=== PATIENT | female | born 1950 | race Caucasian/White ===

== ENCOUNTER 2017-02-11 05:04 | Inpatient (IN) ==
[2017-02-11] MEDS ORDERED: IPRATROPIUM/ALBUTEROL 3 ML AMPUL.NEB NEB ONE ×2 (05:11→05:40)
[2017-02-11] MEDS ORDERED: methylPREDNISolone SOD SUCC 125 MG/2 ML VIAL IV ONE (05:11)
--- NOTE | 2017-02-11 05:22 | Emergency Department Note ---
Asthma HPI - General Chief Complaint: Asthma Stated Complaint: asthma short of breathe Time Seen by Provider: 02/11/17 05:10 Source: patient Mode of arrival: ambulatory - History of Present Illness HPI Narrative: 66-year-old female with a history of COPD , has had wheezing for the past 3 days , but increased tonight. sHe initially arrived with O2 sats of 88% but after the first DuoNeb treatment has been up in the mid 90s. pt has had some cough with no sputum production, she is afebrile. Denies any chest pain. It has been using her inhaler. patient a heavy tobacco user and continues to smoke. has an appointment in two days with her pcp. she only has a mdi albuterol puffer. - Related Data Home Medications Medication Instructions Recorded Confirmed albuterol sulfate HFA 90 2 puff INHALATION Q6H g 03/18/16 12/18/16 mcg/actuation aerosol inhaler multivit with 1 tab PO QDAY tab 03/18/16 12/18/16 qlqqakhw-hepe-JV-lutein 8 mg iron-400 mcg-300 mcg tablet omeprazole magnesium 20 mg 20 mg PO BID 09/29/16 12/18/16 capsule,delayed release Previous Rx's Medication Instructions Recorded amlodipine 10 mg tablet 10 mg PO QDAY 90 Days 03/17/16 benazepril 20 mg tablet 20 mg PO BID 90 Days 03/17/16 valacyclovir 1 gram tablet 1,000 mg PO ONCE #20 tab 11/11/16 Azithromycin [Zithromax] 250 mg PO #6 tablet 02/11/17 predniSONE [Prednisone] 10 mg PO [facility] #30 tablet 02/11/17 Allergies Allergy/AdvReac Type Severity Reaction Status Date / Time No Known Drug Allergies Allergy Unknown Unknown Verified 12/18/16 11:13 Review of Systems All systems ED: reviewed and negative except as stated. Constitutional: Denies: fever, chills Eyes: Denies: eye pain ENT ED: Denies: ear pain Cardiovascular: Denies: chest pain, palpitations Respiratory: Reports: as per HPI, wheezes Asthma PMH - Past Medical History Medical history: Reports: COPD, GERD, hypertension, osteoporosis, other ( previous pneumothorax.meningitis. Massive adrenal gland.) Family history: Reports: no significant family history - Social History smoking status: Heavy tobacco smoker Alcohol use: Reports: Rarely Drug use: Reports: none Physical Exam - General Limitations: no limitations General appearance: alert - Head Head exam: atraumatic - Eye Eye exam: Present: normal appearance, PERRL - ENT ENT exam: normal exam, normal oropharynx - Neck Neck exam: Present: normal inspection, full ROM. Absent: trachea midline - Chest Chest inspection: Present: normal inspection - Respiratory Respiratory exam: Present: wheezes. Absent: respiratory distress, stridor - Cardiovascular Cardiovascular exam: Present: regular rate, normal rhythm - Abdominal Exam Abdominal exam: Present: soft. Absent: distention, tenderness - Extremities Exam Extremities exam: Present: normal inspection, full ROM - Back Exam Back exam: Present: full ROM - Neurological Exam Neurological exam: Present: alert, oriented X3 - Psychiatric Psychiatric exam: Present: normal affect, normal mood Course Vital Signs Temperature 100.9 F H 02/11/17 05:05 Pulse Rate 111 H 02/11/17 05:05 Respiratory Rate 24 02/11/17 05:05 Blood Pressure 155/88 02/11/17 05:05 Pulse Oximetry (%) 88 L 02/11/17 05:05 Temperature 99.6 F 02/11/17 06:01 Pulse Rate 81 02/11/17 08:41 Respiratory Rate 20 02/11/17 06:01 Blood Pressure 105/65 02/11/17 08:41 Pulse Oximetry (%) 93 02/11/17 08:41 Asthma - MDM Narrative Medical decision making narrative: patient given 2 duonebs and solumedrol, intial temp was 100.9.temporally but was retaken orally and temp was 99.6. after second duoneb sats are are 94 %. but decreased to 87 % again. o2 was started. Radiologist suspects pneumonia in rll and lll. lactic is 1.0 and wbc is 11,000 with 66 segs and 10 bandsdr Rahtod called and patient to be admited - Lab Data Result diagrams: 02/11/17 06:10 02/11/17 06:10 Lab Results 02/11/17 02/11/17 02/11/17 Range/Units 06:10 06:10 06:20 WBC 11.5 H (4.5-11.0) K/mcL RBC 4.66 (4.00-5.20) M/mcL Hgb 14.1 (12.0-15.0) g/dL Hct 43.6 (36.0-48.0) % MCV 93.6 (80.0-100.0) fL MCH 30.3 (26.0-34.0) pg MCHC 32.4 (31.0-36.0) g/dL RDW 13.9 (11.5-14.5) % Plt Count 153 (140-440) K/mcL MPV 10.1 (7.4-10.4) fL Total Counted 200 Seg Neutrophils % 66 (38-78) % Band Neutrophils % 10 (0-10) % Lymphocytes % 15 (15-49) % Monocytes % (Manual) 7 (1-12) % Reactive Lymphocytes 2 (0-2) % Platelet Estimate Normal (NORMAL) RBC Morphology Normal (NORMAL) VBG Lactic Acid 1.0 (0.5-2.2) mmol/L Sodium 140 (133-145) mmol/L Potassium 3.9 (3.3-5.1) mmol/L Chloride 99 (96-108) mmol/L Carbon Dioxide 27 (22-30) mmol/L Anion Gap 14.0 (8-16) BUN 8 (8-23) mg/dl Creatinine 0.7 (0.6-1.1) mg/dl GFR Calculation 90 Glucose 100 (70-105) mg/dL Calcium 9.3 (8.6-10.4) mg/dl Total Bilirubin 0.6 (0.0-1.0) mg/dL AST 15 (0-37) U/l ALT 13 (0-40) U/l Alkaline Phosphatase 83 (39-117) U/L NT-Pro-B Natriuret Pep 151.2 H (0-125) pg/ml Total Protein 6.7 (5.9-8.4) gm/dL Albumin 4.0 (3.2-5.2) gm/dL Globulin 2.7 (2.2-3.7) gm/dL Albumin/Globulin Ratio 1.5 (1.0-2.3) Disposition Clinical Impression: COPD exacerbation, Pneumonia Clinical Impression: (Ruled Out): Bronchitis Disposition: Xfer As Inpt ([facility]) Condition: Fair Instructions: Chronic Obstructive Pulmonary Disease (ED), Chronic Bronchitis ( ED) Prescriptions: Azithromycin [Zithromax] 250 mg PO UD #6 tablet predniSONE [Prednisone] 10 mg PO [facility] #30 tablet Referrals: Mary Reddy DO [Primary Care Provider] - Time of Disposition: 06:07
[2017-02-11] MEDS ORDERED: cefTRIAXone 1 GM in DEXTROSE 5% IN WATER 50 ML IV ONE (06:12)
[2017-02-11] MEDS ORDERED: AZITHROMYCIN 500 MG in DEXTROSE 5% IN WATER 250 ML IV ONE (06:13)
[2017-02-11 07:07] LABS: Mean Cell Volume 93.6 fL (80.0-100.0); Mean Corpuscular HGB Conc 32.4 g/dL (31.0-36.0); Mean Corpuscular Hemoglobin 30.3 pg (26.0-34.0); Platelet Count 153 K/mcL (140-440); RBC 4.66 M/mcL (4.00-5.20); Red Cell Distribution Width 13.9 % (11.5-14.5)
[2017-02-11 07:29] LABS: ALT/SGPT 13 U/l (0-40); Albumin/Globulin Ratio 1.5 (1.0-2.3); Alkaline Phosphatase 83 U/L (39-117); Blood Urea Nitrogen 8 mg/dl (8-23); proBNP 151.2 pg/ml (0-125)
[2017-02-11 07:39] LABS: Band Neutrophils % 10 % (0-10); Lymphocytes % 15 % (15-49); Monocytes % (Manual) 7 % (1-12); Platelet Estimate NORMAL (NORMAL); RBC Morphology NORMAL (NORMAL); Segmented Neutrophils % 66 % (38-78)
--- NOTE | 2017-02-11 08:05 | XRay Report ---
CLINICAL INFORMATION: Wheezing. History of centrilobular emphysema and chronic right middle lobe atelectasis COMPARISON: Chest CT from 04/25/2016 plain films in 12/12/2016.. FINDINGS: Heart size, mediastinum and pulmonary vessels are normal. Complete right middle lobe atelectasis is a long time chronic finding. Vague airspace disease has developed in the right lower lobes suspicious for a new infiltrate. No definite pleural effusions IMPRESSION: Probable new back right lower lobe infiltrate. Suggest short-term two view chest x-ray for reevaluation Complete chronic atelectasis of the right middle lobe - as previously seen Centrilobular emphysema Interpreted and Authenticated by: Wally Bearden 02/11/17
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
[2017-02-11] MEDS ORDERED: ONDANSETRON 4 MG/2 ML VIAL IV PRN (10:30)
[2017-02-11] MEDS ORDERED: NALOXONE HCL 0.4 MG/ML VIAL IV PRN (10:30)
[2017-02-11] MEDS ORDERED: MAGNESIUM HYDROXIDE 30 ML ORAL.SUSP PO PRN (10:30)
[2017-02-11] MEDS ORDERED: FLEETS ADULT ENEMA PR PRN (10:30)
[2017-02-11] MEDS ORDERED: ACETAMINOPHEN 325 MG TABLET PO PRN (10:30)
[2017-02-11] MEDS ORDERED: oxyCODONE HCL 5 MG TABLET PO PRN (10:30)
[2017-02-11] MEDS: 0.9 % SODIUM CHLORIDE 10 ML SYRINGE IV SCH ×2 (14:09→21:36)
[2017-02-11] MEDS: methylPREDNISolone SOD SUCC 125 MG/2 ML VIAL IV SCH ×2 (14:09→21:35)
[2017-02-11] MEDS: IPRATROPIUM/ALBUTEROL 3 ML AMPUL.NEB NEB SCH ×4 (15:51→22:24)
[2017-02-11] MEDS: HEPARIN 5,000 UNIT/ML VIAL SQ SCH (21:34)
[2017-02-12] MEDS: IPRATROPIUM/ALBUTEROL 3 ML AMPUL.NEB NEB SCH ×3 (04:21→11:21)
[2017-02-12] MEDS: methylPREDNISolone SOD SUCC 125 MG/2 ML VIAL IV SCH (06:58)
[2017-02-12] MEDS: 0.9 % SODIUM CHLORIDE 10 ML SYRINGE IV SCH (06:58)
[2017-02-12 07:05] LABS: Basophils # (Auto) 0 K/mcL (0.0-0.3); Basophils % (Auto) 0.1 % (0.0-2.0); Eosinophils # (Auto) 0 K/mcL (0.0-0.7); Eosinophils % (Auto) 0 % (0.0-7.0); Granulocytes % (Auto) 90.9 % (38.0-78.0); Lymphocytes # (Auto) 0.7 K/mcL (1.5-4.8); Lymphocytes % (Auto) 5.9 % (15.5-49.0); Mean Cell Volume 93.5 fL (80.0-100.0); Mean Corpuscular HGB Conc 32.5 g/dL (31.0-36.0); Mean Corpuscular Hemoglobin 30.4 pg (26.0-34.0); Monocytes # (Auto) 0.4 K/mcL (0.1-0.9); Monocytes % (Auto) 3.1 % (1.0-12.0); Platelet Count 149 K/mcL (140-440); RBC 4.19 M/mcL (4.00-5.20); Red Cell Distribution Width 13.8 % (11.5-14.5)
[2017-02-12 07:47] LABS: ALT/SGPT 15 U/l (0-40); Albumin 3.7 gm/dL (3.2-5.2); Albumin/Globulin Ratio 1.3 (1.0-2.3); Alkaline Phosphatase 91 U/L (39-117); Bilirubin,Direct < 0.2 mg/dL (0.0-0.3); Blood Urea Nitrogen 10 mg/dl (8-23); Gamma Glutamyl Transpeptidase 12 U/L (5-36); Uric Acid 3.9 mg/dL (2.5-8.0)
[2017-02-12] MEDS ORDERED: AZITHROMYCIN 250 MG TABLET PO SCH (09:00)
[2017-02-12] MEDS ORDERED: amLODIPine 10 MG TABLET PO SCH (09:00)
[2017-02-12] MEDS ORDERED: cefTRIAXone 1 GM in DEXTROSE 5% IN WATER 50 ML IV SCH (09:00)
[2017-02-12] MEDS ORDERED: OMEPRAZOLE MAGNESIUM 20 MG PO SCH (09:00)
[2017-02-12] MEDS ORDERED: LISINOPRIL 20 MG TABLET PO SCH ×2 (09:00→10:00)
[2017-02-12] MEDS ORDERED: MULTIVIT,THER IRON,CA,FA & MIN 1 TABLET PO SCH (09:00)
[2017-02-12] MEDS: HEPARIN 5,000 UNIT/ML VIAL SQ SCH (09:13)
--- NOTE | 2017-02-12 10:10 | Discharge Summary ---
Medical - DS: Prov Patient information: Note initiated : 02/12/17 at 10:05 am Service Date, if different from initiated Date: [] Patient: Yumiko Marsh 66 y/o F admitted on 02/11/17 for Astham/SOB. Chief Complaint: [] Date of admission: 02/11/17 10:31 Discharge date: 02/12/17 Primary care physician: [f_Reg Prim Care Provider] Admitting clinician: Lisa Mcgrath Discharging clinician: Lisa Mcgrath Medical - DS: Meds - Discharge Medications Prescriptions: Cefdinir 300 mg PO BID #10 capsule Ipratropium/Albuterol Sulfate [Combivent] 2 puff INH QID #1 inhaler predniSONE [Prednisone] 10 mg PO ONCE #20 tablet Active and Home Medications: Home Medications amlodipine 10 mg tablet 10 mg PO QDAY 90 Days 03/17/16 [Rx Confirmed 02/11/17 Last Taken Unknown] benazepril 20 mg tablet 20 mg PO BID 90 Days 03/17/16 [Rx Confirmed 02/11/17 Last Taken Unknown] albuterol sulfate HFA 90 mcg/actuation aerosol inhaler 2 puff INHALATION Q6H g 03/18/16 [History Confirmed 02/11/17 Last Taken 02/10/17] multivit with aegqtujg-pgoy-YC-lutein 8 mg iron-400 mcg-300 mcg tablet 1 tab PO QDAY tab 03/18/16 [History Confirmed 02/11/17 Last Taken Unknown] omeprazole magnesium 20 mg capsule,delayed release 20 mg PO BID 09/29/16 [ History Confirmed 02/11/17 Last Taken Unknown] Benazepril [Lotensin] 20 mg PO BID 02/11/17 [History Confirmed 02/12/17 Last Taken 02/10/17 07:30] Medical - DS: Hosp Hospital course: Mr. Marsh is a 66 year old female who presented to the hospital with complaints of shorteness of breath, cough, X ray was suggestive of pna, and she was admitted to the hospital with community acquired pneumonia and codp exacerbation. Community acquired pneumonia: Patient doing much better, able to tolerate po well, wbc count back to normal, she will be discharged home on azithromycin and cefdinir Copd exacerbation : On presentation she was hypoxic, treated with iv steroids, duonebs, she responded to treatment very well, and turned a cornder sooner than expected. She is on 92-93% on RA which is her baseline. She will be discharged home on po prednisone 40mg qd x 4 days and a combivent inhaler the rest of the patients stay in the hospital was uneventful, no changes in her home meds done Smoking cessation reinforced again. Discharge diagnosis: pneumonia, copd exacerbation - Time Spent with Patient Total time spent providing and/or coordinating discharge services: Less than 30 minutes Medical - DS: Exam - Constitutional Vitals: Vital Signs Temp Pulse Pulse Pulse Resp BP BP 02/12/17 07:44 02/12/17 07:41 88 16 02/12/17 07:23 78 16 02/12/17 06:36 97.5 F L 78 72 16 120/62 02/12/17 03:42 98.3 F 74 24 102/63 02/11/17 23:52 98.2 F 80 24 110/68 02/11/17 22:26 70 22 02/11/17 22:25 70 22 02/11/17 20:00 98.1 F 96 H 24 126/58 02/11/17 18:57 83 18 02/11/17 18:56 79 18 02/11/17 15:52 79 18 02/11/17 15:32 97.8 F 18 109/62 02/11/17 10:33 96.7 F L 86 24 113/67 Pulse Ox 02/12/17 07:44 92 02/12/17 07:41 02/12/17 07:23 90 02/12/17 06:36 90 02/12/17 03:42 92 02/11/17 23:52 94 02/11/17 22:26 96 02/11/17 22:25 02/11/17 20:00 91 02/11/17 18:57 93 02/11/17 18:56 02/11/17 15:52 02/11/17 15:32 93 02/11/17 10:33 90 Intake and Output 02/11/17 02/12/17 02/12/17 21:59 05:59 13:59 Intake Total 1760 / 1760 100 / 100 Balance 1760 / 1760 100 / 100 Intake: Oral 1760 / 1760 100 / 100 Other: Meal Dinner Breakfast Percent of Meal Consumed 100% 100% Feeding Ability Independent # Voids 1 1 Weight 158 lb Additional comments: Constitutional; Afebrile, cooperative, alert, not in distress. Eyes- No icterus, , No periorbital swelling Ears- Ext ear normal, hearing normal to conversation. Neck- Midline trachea, supple Respiratory system: Air Entry equal on both sides, No crackles or wheezing, no rhonchi. CVS- Rate rhythm regular, S1,S2 heard, no gallop, no rub. Abdomen- Soft nontender abdomen, no organomegaly, no tenderness, no guarding or rigidity, ASSOCIATE RELATIONS SPECIALIST- AOOx3, moving all extremities, no gross focal deficit noted. Medical - DS: Data Labs on day of discharge: Labs from last 24 hours 02/12/17 02/12/17 04:55 04:55 WBC 12.4 H RBC 4.19 Hgb 12.8 Hct 39.2 MCV 93.5 MCH 30.4 MCHC 32.5 RDW 13.8 Plt Count 149 MPV 10.0 Gran % 90.9 H Lymph % (Auto) 5.9 L [place] % (Auto) 3.1 Eos % (Auto) 0 Baso % (Auto) 0.1 Gran # 11.2 H Lymph # 0.7 L [place] # 0.4 Eos # 0 Baso # 0 Sodium 141 Potassium 4.0 Chloride 100 Carbon Dioxide 23 Anion Gap 18.0 H BUN 10 Creatinine 0.6 GFR Calculation 95 Glucose 170 H Uric Acid 3.9 Calcium 9.8 Phosphorus 3.1 Magnesium 2.0 Total Bilirubin 0.2 Direct Bilirubin < 0.2 GGT 12 AST 14 ALT 15 Alkaline Phosphatase 91 Lactate Dehydrogenase 206 Total Protein 6.5 Albumin 3.7 Globulin 2.8 Albumin/Globulin Ratio 1.3 Triglycerides 65 Medical - DS: A/P - Patient/Caregiver Discharge Instructions Activity: increase activity as tolerated Diet: Regular Diet, Low Sodium (2gm) Additional Instructions: Follow up with PCP in 7-10 days Take azithromycin 250mg once daily x 4 days. Take prednisone (10mg tab) 40mg (4 tabs) once daily for 5 days Take cefdinir 300mg twice daily for 5 days. Go to the ER if worsening shortness of breath, fever or any new concerns. - Follow up Plan Follow up with: Mary Reddy DO [Primary Care Provider] - Disposition: Home, Self-Care Prognosis: Fair Rehab Potential: Fair I certify that the patient requires SNF services: No Overall status at discharge: patient is progressing back to baseline Medical - DS: Qual - VTE Deep Vein Thrombosis/Pulmonary Embolism Present on Admission: No
[2017-02-12] MEDS ORDERED: PANTOPRAZOLE 40 MG TABLET PO SCH (17:00)
== END 2017-02-12 11:55 | disposition home or self-care (01) | DRG 190 ==
LOC: ED 05:04 → MEDSUR 10:30
PROVIDERS: ADMIT Internal Medicine; ATTEND Internal Medicine

== ENCOUNTER 2023-04-02 22:21 | Inpatient (IN) ==
[2023-04-02] MEDS ORDERED: IPRATROPIUM/ALBUTEROL 3 ML AMPUL.NEB NEB ONE ×2 (22:32→23:20)
[2023-04-02] MEDS ORDERED: 0.9 % SODIUM CHLORIDE 1,000 ML IV ONE (22:34)
--- NOTE | 2023-04-02 22:34 | Emergency Department Note ---
HPI General Chief complaint: Shortness of Breath/Dyspnea Stated complaint: SOB Time Seen by Provider: 04/02/23 22:32 Mode of arrival: ambulatory History of Present Illness HPI Narrative: Narrative: Patient is a 72-year-old female with a past medical history significant for COPD and hypertension who presents to the emergency department due to shortness of breath. Patient states that she began to have shortness of breath earlier today, but that it has become much more significant at this time. She states this worsens with activity, but denies any other palliative or provocative factors. She endorses worsening cough as well. She states that she has had so me runny nose and sore throat. She denies any other symptoms at this time. Related Data Home Medications Medication Instructions Recorded Confirmed omeprazole magnesium 20 mg 20 mg PO BID 09/29/16 04/03/23 capsule,delayed release mirtazapine 7.5 mg tablet 7.5 mg PO QHS 03/24/23 04/03/23 Previous Rx's Medication Instructions Recorded amlodipine 5 mg tablet 5 mg PO QDAY #90 tabs 03/24/23 benazepril 20 mg tablet (Lotensin) 20 mg PO BID blood pressure #180 03/24/23 tabs tiotropium 2.5 mcg-olodaterol 2.5 See Rx Instructions .Route 03/24/23 mcg/actuation mist for inhalation .COMPLEX #4 grams (Stiolto Respimat) Allergies Allergy/AdvReac Type Severity Reaction Status Date / Time No Known Drug Allergies Allergy Unknown Unknown Verified 04/02/23 22:30 Review of Systems ROS ROS Narrative: Narrative: Constitutional: Denies fever or weakness Eyes: Denies eye discharge or vision change ENT ED: Reports throat pain and rhinorrhea Cardiovascular: Denies chest pain, dyspnea on exertion, orthopnea or edema Respiratory: Reports shortness of breath and cough Gastrointestinal: Denies abdominal pain, nausea, vomiting, diarrhea, constipation, hematochezia or melena Musculoskeletal: Denies back pain or myalgia Integumentary: Denies rash or lesions Neurological: Denies headache or weakness [facility] Narrative Patient History Narrative: Narrative: Medical/Surgical/Family History All Active Problems (Updated 04/03/23 @ 05:52 by Isak Mckenzie MD) COPD exacerbation (Acute) Acid reflux (Chronic) Epigastric abdominal pain (Chronic) Constipation (Chronic) Recurrent cold sores (Chronic) Abdominal pain (Chronic) Chest pain (Chronic) COPD (chronic obstructive pulmonary disease) (Chronic) Lung nodule seen on imaging study (Chronic) Atelectasis of right lung (Chronic) Hx of laparoscopic gastric banding (Chronic) Tobacco abuse (Chronic) Peripheral neuropathy (Chronic) Osteopenia (Chronic) Hypertension, essential, benign (Chronic) Hemorrhoids, internal (Chronic) Esophagitis, reflux (Chronic) Emphysema lung (Chronic) 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 Emphysema lung Epigastric abdominal pain Esophagitis 05/04/2013 - See EGD report, Dr. Larson Esophagitis, reflux Gastritis, acute 01/18/2015 Hemorrhoids, internal 01/18/2015 - Prolapsed Herpes zoster Hypertension, essential, benign Hypocalcemia 12/15/2012 Hypoxia Left anterior knee pain either DJD vs meniscal tear. GEt X Ray today, NSAIDS x 2 weeks. If no resp onse reassess. 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 CT neg, adenoma, Meningitis Osteopenia Peripheral neuropathy 07/31/2014 Pleural effusion 12/15/2012 Pneumonia Pneumonia Pyelonephritis Recurrent cold sores Seborrheic dermatitis Seizure disorder 01/10/2013 Shakiness Sinusitis, acute Solitary lung nodule Tobacco abuse Visual disturbance 10/31/2014 Surgical History (Updated 12/18/22 @ 15:54 by Anna Becerra) History of esophagogastroduodenoscopy 05/04/2013 History of hemorrhoidectomy (~2017) Seen by Dr Patel, s/p banding procedure, on high fiber diet, doing well. History of surgery (~2012) Gallbladder Hx of laparoscopic gastric banding hemorrhoids Family History (Updated 12/18/22 @ 15:55 by Anna Becerra) Unknown Disorder of gallbladder Sister Cancer Brother Diabetes Mother High blood pressure Social History Smoking Status: Current every day smoker Alcohol Intake Frequency: does not drink Substance Use: does not use Exam Narrative Narrative: Narrative: General General appearance: Present alert and in no apparent distress; Absent anxious, appears intoxicated or sleepy Head Head: Present atraumatic and normocephalic Eye Eye: Present PERRL, EOMI and visual chaudhari intact; Absent scleral icterus or nystagmus ENT ENT: Present mucous membranes moist; Absent nasal congestion Neck Neck: Present full ROM and trachea midline Chest Chest: Present normal inspection and symmetric chest wall rise Respiratory Respiratory: Present decreased breath sounds; Absent normal lung sounds bilaterally, respiratory distress, rales/crackles, wheezes, stridor or accessory muscle use Cardiovascular Cardiovascular: Present regular rate, normal rhythm and normal heart sounds Adbominal Abdominal: Absent distention Extremities Extremities: Present normal inspection and full ROM; Absent pedal edema or pretibial edema Back Back: Present normal inspection and full ROM Neurological Neurological: Present alert and oriented X3 Psychiatric Psychiatric: Present normal affect and normal mood Skin Skin: Present warm (WNL), dry and normal color Course Vital Signs Vital signs: Vital Signs Temperature 99.2 F H 04/02/23 22:22 Pulse Rate 118 H 04/02/23 22:22 Respiratory Rate 36 H 04/02/23 22:22 Blood Pressure 188/93 04/02/23 22:22 Pulse Oximetry (%) 96 04/02/23 22:22 Oxygen Delivery Method Nasal Cannula 04/02/23 22:22 Oxygen Flow Rate (L/min) 4 04/02/23 22:22 Temperature 98.4 F 04/03/23 03:40 Pulse Rate 92 H 04/03/23 03:40 Respiratory Rate 24 H 04/03/23 03:40 Blood Pressure 124/59 04/03/23 03:40 Pulse Oximetry (%) 92 04/03/23 03:40 Oxygen Delivery Method Nasal Cannula 04/03/23 03:40 Oxygen Flow Rate (L/min) 4 04/03/23 03:40 [facility] MDM Narrative Medical decision making narrative: Narrative: Patient is a 72-year-old female who presents to the emergency department due to shortness of breath. Differential diagnosis include ACS, pneumonia, COVID, influenza, other viral infection, and COPD exacerbation. Patient's labs are reassuring overall. X-ray does demonstrate groundglass opacities at the bases. Patient received a DuoNeb with improvement in symptoms. She also was not working as hard to breathe at this time. Patient received another DuoNeb breathing treatment with further improvement, but continues to have decreased breath sounds throughout the lungs. Patient was then given a prolonged breathing treatment. At that time she expressed further improvement in breathing, but continued to require 4 L of oxygen via nasal cannula, and does not require oxygen at baseline. For this reason we did speak to Dr. Monsivais and he did agree with admission at this time. Lab Data 04/02/23 22:40 Labs: Lab Results 04/02/23 04/02/23 04/02/23 Range/Units 22:36 22:36 22:39 WBC (4.5-11.0) K/mcL RBC (3.59-5.38) M/mcL Hgb (11.2-15.7) g/dL Hct (34.1-44.9) % POC Hct 46.0 (36-48) MCV (80.0-100.0) fL MCH (26.0-34.0) pg MCHC (31.0-36.0) g/dL RDW (11.5-14.5) % Plt Count (140-440) K/mcL MPV (8.8-12.5) fL Immature Gran % (Auto) (0.0-0.5) % Neut % (Auto) (38.0-78.0) % Lymph % (Auto) (15.5-49.0) % [place] % (Auto) (1.0-12.0) % Eos % (Auto) (0.0-7.0) % Baso % (Auto) (0.0-2.0) % Lymph # (Auto) (1.50-4.80) K/mcL [place] # (Auto) (0.10-0.90) K/mcL Eos # (Auto) (0.00-0.70) K/mcL Baso # (Auto) (0.00-0.30) K/mcL Immature Gran # (0.00-0.05) K/mcl Absolute Neutrophils (1.80-8.00) K/mcL POC VBG pH 7.37 (7.32-7.42) POC VBG pCO2 at Temp 47.0 (41-51) POC VBG pO2 47 H (25-40) POC VBG HCO3 27.1 (24-28) POC VBG Total CO2 29.0 (25-29) POC Venous O2 Sat 81.0 H (40-70) POC VBG Base Excess 2.0 (-2-2) VBG Lactic Acid 1.8 (0.5-2) POC Sodium 139 (133-145) POC Potassium 3.8 (3.3-5.1) POC Chloride 100 (96-108) POC Total CO2 25.0 (22-30) POC Anion Gap 19.0 H (8.0-16.0) POC BUN 11 (6-20) POC Creatinine 0.7 (0.6-1.2) POC Glucose 163 H (70-105) POC WB Ioniz Calcium 1.18 (1.16-1.32) NT-Pro-B Natriuret Pep 271.3 H (<125.0) pg/mL 04/02/23 Range/Units 22:40 WBC 6.9 (4.5-11.0) K/mcL RBC 4.76 (3.59-5.38) M/mcL Hgb 14.3 (11.2-15.7) g/dL Hct 43.8 (34.1-44.9) % POC Hct (36-48) MCV 92.0 (80.0-100.0) fL MCH 30.0 (26.0-34.0) pg MCHC 32.6 (31.0-36.0) g/dL RDW 13.7 (11.5-14.5) % Plt Count 175 (140-440) K/mcL MPV 11.4 (8.8-12.5) fL Immature Gran % (Auto) 0.3 (0.0-0.5) % Neut % (Auto) 80.9 H (38.0-78.0) % Lymph % (Auto) 14.4 L (15.5-49.0) % [place] % (Auto) 3.8 (1.0-12.0) % Eos % (Auto) 0.6 (0.0-7.0) % Baso % (Auto) 0 (0.0-2.0) % Lymph # (Auto) 1.00 L (1.50-4.80) K/mcL [place] # (Auto) 0.26 (0.10-0.90) K/mcL Eos # (Auto) 0.04 (0.00-0.70) K/mcL Baso # (Auto) 0 (0.00-0.30) K/mcL Immature Gran # 0.02 (0.00-0.05) K/mcl Absolute Neutrophils 5.61 (1.80-8.00) K/mcL POC VBG pH (7.32-7.42) POC VBG pCO2 at Temp (41-51) POC VBG pO2 (25-40) POC VBG HCO3 (24-28) POC VBG Total CO2 (25-29) POC Venous O2 Sat (40-70) POC VBG Base Excess (-2-2) VBG Lactic Acid (0.5-2) POC Sodium (133-145) POC Potassium (3.3-5.1) POC Chloride (96-108) POC Total CO2 (22-30) POC Anion Gap (8.0-16.0) POC BUN (6-20) POC Creatinine (0.6-1.2) POC Glucose (70-105) POC WB Ioniz Calcium (1.16-1.32) NT-Pro-B Natriuret Pep (<125.0) pg/mL Discharge Plan Patient/Caregiver Discharge Instructions Pt seen by FLEET SALESPERSON/PA only: No Clinical Impression: COPD exacerbation Patient Disposition: Xfer As Inpt ([facility]) Discharge Date/Time: 04/03/23 03:32
[2023-04-02 22:40] LABS: POC Calcium, Ionized 1.18 (1.16-1.32); POC Creatinine 0.7 (0.6-1.2); POC Potassium 3.8 (3.3-5.1)
[2023-04-02 23:47] LABS: Basophils # (Auto) 0 K/mcL (0.00-0.30); Basophils % (Auto) 0 % (0.0-2.0); Eosinophils # (Auto) 0.04 K/mcL (0.00-0.70); Eosinophils % (Auto) 0.6 % (0.0-7.0); Hematocrit 43.8 % (34.1-44.9); Hemoglobin 14.3 g/dL (11.2-15.7); Lymphocytes % (Auto) 14.4 % (15.5-49.0); Mean Corpuscular HGB Conc 32.6 g/dL (31.0-36.0); Mean Platelet Volume 11.4 fL (8.8-12.5); Monocytes # (Auto) 0.26 K/mcL (0.10-0.90); Monocytes % (Auto) 3.8 % (1.0-12.0); Neutrophils % (Auto) 80.9 % (38.0-78.0); Platelet Count 175 K/mcL (140-440); RBC 4.76 M/mcL (3.59-5.38); Red Cell Distribution Width 13.7 % (11.5-14.5); WBC 6.9 K/mcL (4.5-11.0)
[2023-04-02] MEDS ORDERED: predniSONE 20 MG TABLET PO ONE (23:47)
[2023-04-02 23:56] LABS: proBNP 271.3 pg/mL (<125.0)
[2023-04-03] MEDS ORDERED: ALBUTEROL SULFATE 2.5 MG/3 ML NEBULIZER NEB ONE (00:11)
[2023-04-03] MEDS ORDERED: IPRATROPIUM 2.5 ML AMPUL.NEB NEB ONE (00:11)
[2023-04-03] MEDS ORDERED: ONDANSETRON 4 MG/2 ML VIAL IV PRN (01:54)
[2023-04-03] MEDS ORDERED: ACETAMINOPHEN 325 MG TABLET PO PRN (01:54)
[2023-04-03] MEDS: LACTATED RINGERS 1,000 ML IV SCH ×3 (04:15→23:33)
--- NOTE | 2023-04-03 07:11 | Internal Med History&Physical ---
HPI History of Present Illness Patient information: Note initiated : 04/03/23 at 7:07 am Service Date, if different from initiated Date: [] Patient: Yumiko Marsh 72 y/o F admitted on 04/03/23 for Shortness of breath. Chief Complaint: [] History of present illness: Ms. Marsh is a 72 year old female with a past medical history significant for COPD not on oxygen, current smoker, history of allergies hypertension, GERD presented with worsening shortness of breath, increased cough and sputum production. Patient has been a smoker since the age of 15 and currently smokes 1/2 a pack a day. Patient reports she has seasonal allergies and takes [id number] antiallergy medication, she couple of days ago she was working in her property, mowing the lawn and she feels this exacerbated her symptoms. Her cough worsened, she is bringing up bluish mucus and short of breath. She does endorse some runny nose and sore throat, she feels cold but no fevers. On presentation patient was requiring 3-4 L nasal cannula oxygen to keep her sats in low 90s. She was tachycardic with heart rate 102, blood pressure was stable. Patient's labs are reassuring, WBC 6.9, hemoglobin 14.3. VBG pH 7.36, PCO2 47, PO2 47, bicarb 27. Electrolytes, renal functions stable. BNP 271. COVID test was negative in ER. Chest x-ray shows interstitial inflammation in both lower lobes superimposed on underlying emphysema. Patient received DuoNebs with improvement in symptoms however continues to require supplemental oxygen and have decreased breath sounds throughout the lungs. Review of system Constitutional: Denies fever or weakness Eyes: Denies eye discharge or vision change ENT ED: Reports throat pain and rhinorrhea Cardiovascular: Denies chest pain, dyspnea on exertion, orthopnea or edema Respiratory: Reports shortness of breath and cough Gastrointestinal: Denies abdominal pain, nausea, vomiting, diarrhea, constipation, hematochezia or melena Musculoskeletal: Denies back pain or myalgia Integumentary: Denies rash or lesions Neurological: Denies headache or weakness Physical examination General General appearance: Present alert and in no apparent distress; Absent anxious, appears intoxicated or sleepy Head Head: Present atraumatic and normocephalic Eye Eye: Present PERRL, EOMI and visual chaudhari intact; Absent scleral icterus or nystagmus ENT ENT: Present mucous membranes moist; Absent nasal congestion Neck Neck: Present full ROM and trachea midline Chest Chest: Present normal inspection and symmetric chest wall rise Respiratory Respiratory: Present decreased breath sounds; on 4 L nasal cannula oxygen satting mid 90s, absent normal lung sounds bilaterally, respiratory distress, rales/crackles, wheezes, stridor or accessory muscle use Cardiovascular Cardiovascular: Present regular rate, normal rhythm and normal heart sounds Adbominal Abdominal: Absent distention Extremities Extremities: Present normal inspection and full ROM; Absent pedal edema or pretibial edema Back Back: Present normal inspection and full ROM Neurological Neurological: Present alert and oriented X3 Psychiatric Psychiatric: Present normal affect and normal mood Skin Skin: Present warm (WNL), dry and normal color Assessment and plan COPD exacerbation in the background of seasonal allergies and exposure to possible allergens. Will manage with IV Solu-Medrol 40 mg every 8 hours, DuoNebs, budesonide, antitussives, pulmonary toileting. Chest x-ray with interstitial inflammation in both lobes but no clear infiltrate. No fever, no leukocytosis. Will hold off on antibiotic therapy. Will obtain procalcitonin. Acute hypoxic respiratory failure. Currently requiring 3 to 4 L nasal cannula oxygen. Wean oxygen as tolerated Current smoker, 1/2 PPD; down from 1 PPD; smoking since age 15 or younger. Counseled on smoking cessation. Nicotine replacement therapy Hypertension, continue home dose Lotensin 20 mg twice daily amlodipine 5 mg, does have some peripheral swelling due to it but improved on low-dose. Anxiety and depression, continue mirtazapine 7.5 mg daily GERD. PPI DVT prophylaxis with SCDs Full code Total time taken >70 min PFSH PFS All Active Problems (Updated 04/03/23 @ 05:52 by Isak Mckenzie MD) COPD exacerbation (Acute) Acid reflux (Chronic) Epigastric abdominal pain (Chronic) Constipation (Chronic) Recurrent cold sores (Chronic) Abdominal pain (Chronic) Chest pain (Chronic) COPD (chronic obstructive pulmonary disease) (Chronic) Lung nodule seen on imaging study (Chronic) Atelectasis of right lung (Chronic) Hx of laparoscopic gastric banding (Chronic) Tobacco abuse (Chronic) Peripheral neuropathy (Chronic) Osteopenia (Chronic) Hypertension, essential, benign (Chronic) Hemorrhoids, internal (Chronic) Esophagitis, reflux (Chronic) Emphysema lung (Chronic) 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 Emphysema lung Epigastric abdominal pain Esophagitis 05/04/2013 - See EGD report, Dr. Larson Esophagitis, reflux Gastritis, acute 01/18/2015 Hemorrhoids, internal 01/18/2015 - Prolapsed Herpes zoster Hypertension, essential, benign Hypocalcemia 12/15/2012 Hypoxia Left anterior knee pain either DJD vs meniscal tear. GEt X Ray today, NSAIDS x 2 weeks. If no response reassess. 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 CT neg, adenoma, Meningitis Osteopenia Peripheral neuropathy 07/31/2014 Pleural effusion 12/15/2012 Pneumonia Pneumonia Pyelonephritis Recurrent cold sores Seborrheic dermatitis Seizure disorder 01/10/2013 Shakiness Sinusitis, acute Solitary lung nodule Tobacco abuse Visual disturbance 10/31/2014 Surgical History (Updated 12/18/22 @ 15:54 by Anna Becerra) History of esophagogastroduodenoscopy 05/04/2013 History of hemorrhoidectomy (~2017) Seen by Dr Patel, s/p banding procedure, on high fiber diet, doing well. History of surgery (~2012) Gallbladder Hx of laparoscopic gastric banding hemorrhoids Family History (Updated 12/18/22 @ 15:55 by Anna Becerra) Unknown Disorder of gallbladder Sister Cancer Brother Diabetes Mother High blood pressure Social History marital status: occupational status: unemployed occupation: Homemaker smoking status: Current every day smoker tobacco type: cigarettes per day: 6 pack-years: 45 smoking status start date: 04/03/1966 alcohol intake frequency: does not drink substance use type: does not use MEDS/ALLERGIES Home Medications and Allergies Home Medications Medication Instructions Recorded Confirmed Type omeprazole magnesium 20 mg 20 mg PO BID 09/29/16 04/03/23 History capsule,delayed release amlodipine 5 mg tablet 5 mg PO QDAY #90 tabs 03/24/23 04/03/23 Rx benazepril 20 mg tablet (Lotensin) 20 mg PO BID blood pressure #180 03/24/23 04/03/23 Rx tabs mirtazapine 7.5 mg tablet 7.5 mg PO QHS 03/24/23 04/03/23 History tiotropium 2.5 mcg-olodaterol 2.5 See Rx Instructions .Route 03/24/23 04/03/23 Rx mcg/actuation mist for inhalation .COMPLEX #4 grams (Stiolto Respimat) Allergies Allergy/AdvReac Type Severity Reaction Status Date / Time No Known Drug Allergies Allergy Unknown Unknown Verified 04/02/23 22:30 EXAM Constitutional Vitals: Temp Pulse Resp BP Pulse Ox O2 Del Method O2 Flow Rate 98.4 F 89 24 H 124/59 92 Nasal Cannula 4 04/03/23 03:40 04/03/23 06:45 04/03/23 06:45 04/03/23 03:40 04/03/23 06:45 04/03/23 06:45 04/03/23 06:45 DATA Data Completed and Pending Labs: Labs from last 24 hours 04/02/23 04/02/23 04/02/23 22:40 22:39 22:36 WBC 6.9 RBC 4.76 Hgb 14.3 Hct 43.8 POC Hct MCV 92.0 MCH 30.0 MCHC 32.6 RDW 13.7 Plt Count 175 MPV 11.4 Immature Gran % (Auto) 0.3 Neut % (Auto) 80.9 H Lymph % (Auto) 14.4 L [place] % (Auto) 3.8 Eos % (Auto) 0.6 Baso % (Auto) 0 Lymph # (Auto) 1.00 L [place] # (Auto) 0.26 Eos # (Auto) 0.04 Baso # (Auto) 0 Immature Gran # 0.02 Absolute Neutrophils 5.61 POC VBG pH 7.37 POC VBG pCO2 at Temp 47.0 POC VBG pO2 47 H POC VBG HCO3 27.1 POC VBG Total CO2 29.0 POC Venous O2 Sat 81.0 H POC VBG Base Excess 2.0 VBG Lactic Acid 1.8 POC Sodium POC Potassium POC Chloride POC Total CO2 POC Anion Gap POC BUN POC Creatinine POC Glucose POC WB Ioniz Calcium NT-Pro-B Natriuret Pep 271.3 H 04/02/23 22:36 WBC RBC Hgb Hct POC Hct 46.0 MCV MCH MCHC RDW Plt Count MPV Immature Gran % (Auto) Neut % (Auto) Lymph % (Auto) [place] % (Auto) Eos % (Auto) Baso % (Auto) Lymph # (Auto) [place] # (Auto) Eos # (Auto) Baso # (Auto) Immature Gran # Absolute Neutrophils POC VBG pH POC VBG pCO2 at Temp POC VBG pO2 POC VBG HCO3 POC VBG Total CO2 POC Venous O2 Sat POC VBG Base Excess VBG Lactic Acid POC Sodium 139 POC Potassium 3.8 POC Chloride 100 POC Total CO2 25.0 POC Anion Gap 19.0 H POC BUN 11 POC Creatinine 0.7 POC Glucose 163 H POC WB Ioniz Calcium 1.18 NT-Pro-B Natriuret Pep A/P Time Spent With Patient Time: Total time spent is greater than 50% in coordination of care (as documented) at patient's floor/unit and/or counseling patient: QUALITY VTE Deep Vein Thrombosis/Pulmonary Embolism Present on Admission: No
[2023-04-03] MEDS: BUDESONIDE 0.5 MG/2 ML AMPUL.NEB NEB SCH ×2 (07:28→19:13)
[2023-04-03] MEDS: IPRATROPIUM/ALBUTEROL 3 ML AMPUL.NEB NEB SCH ×3 (07:28→19:13)
[2023-04-03] MEDS: methylPREDNISolone SOD SUCC 40 MG/ML VIAL IV SCH ×3 (07:52→21:33)
--- NOTE | 2023-04-03 08:00 | XRay Report ---
HISTORY: Increased shortness of breath, COPD FINDINGS: Patient has mild to moderate emphysema. There are prominent increased interstitial lung markings about both diaphragms which may be a superimposed active inflammatory process. There is no consolidating infiltrate. No mass, pleural effusion or adenopathy are present. The heart size and pulmonary vasculature are normal. Comparison with the prior chest x-ray from 01/28/23 shows the emphysema is unchanged. The interstitial inflammation in the lung bases is new. IMPRESSION: Interstitial inflammation in both lower lobes superimposed upon underlying emphysema Interpreted and Authenticated by: Fam Diop 04/03/23
[2023-04-03] MEDS ORDERED: BENZONATATE 100 MG CAPSULE PO SCH (09:30)
[2023-04-03] MEDS: guaiFENesin 600 MG TAB.SR.12H PO SCH ×2 (10:02→20:16)
--- NOTE | 2023-04-03 16:13 | EKG ---
[facility] Test Date: 2023-04-02 Pat Name: Yumiko Marsh Department: ED Room: Gender: Female Publication Manager: CARLOS : 1950 Requested By: Isak Mckenzie Order Number: [id number] Reading MD: Wally Diop M.D. Measurements Intervals [place] Rate: 119 P: 76 PA: 137 QRS: 69 QRSD: 82 T: 52 QT: 298 QTc: 420 Interpretive Statements Sinus tachycardia Ventricular premature complex Probable left atrial enlargement Low voltage, extremity leads Abnormal R-wave progression, late transition Electronically Signed On 04-03-2023 16:13:17 PDT by Wally Diop M.D. /[facility] [place]/[id number]
[2023-04-03] MEDS: OMEPRAZOLE 20 MG CAPSULE PO SCH (17:10)
[2023-04-03] MEDS: LISINOPRIL 20 MG TABLET PO SCH (20:16)
[2023-04-03] MEDS ORDERED: MIRTAZAPINE 15 MG TABLET PO SCH (21:00)
[2023-04-04] MEDS: IPRATROPIUM/ALBUTEROL 3 ML AMPUL.NEB NEB SCH ×2 (01:27→06:49)
[2023-04-04] MEDS: methylPREDNISolone SOD SUCC 40 MG/ML VIAL IV SCH (05:26)
[2023-04-04] MEDS: BUDESONIDE 0.5 MG/2 ML AMPUL.NEB NEB SCH (06:49)
[2023-04-04] MEDS: OMEPRAZOLE 20 MG CAPSULE PO SCH (07:13)
[2023-04-04] MEDS: LISINOPRIL 20 MG TABLET PO SCH (08:43)
[2023-04-04] MEDS: LACTATED RINGERS 1,000 ML IV SCH (08:43)
[2023-04-04] MEDS: guaiFENesin 600 MG TAB.SR.12H PO SCH (08:43)
[2023-04-04] MEDS ORDERED: amLODIPine 5 MG TABLET PO SCH (09:00)
[2023-04-04] MEDS ORDERED: ALBUTEROL SULFATE 2.5 MG/3 ML NEBULIZER NEB PRN (09:32)
--- NOTE | 2023-04-04 09:49 | Discharge Summary ---
Discharge Provider Provider IMPORTANT FOLLOW-UP INFORMATION FOR PCP: Patient information: Note initiated : 04/04/23 at 9:45 am Service Date, if different from initiated Date: [] Patient: Yumiko Marsh 72 y/o F admitted on 04/03/23. Chief Complaint: [] Date of admission: 04/03/23 03:32 Discharge date: 04/04/23 Primary care physician: Mary Reddy DO Consults: 04/03/23 Consult to Physician [CONS] Stat Comment: Consulting Provider: Bimal Monsivais Reason For Exam: Physician to Consult COURSE Hospital Course Hospital course: Ms. Marsh is a 72 year old female with a past medical history significant for COPD not on oxygen, current smoker, history of allergies hypertension, GERD presented with worsening shortness of breath, increased cough and sputum production. Patient has been a smoker since the age of 15 and currently smokes 1/2 a pack a day. Patient reports she has seasonal allergies and takes [id number] antiallergy medication, she couple of days ago she was working in her property, mowing the lawn and she feels this exacerbated her symptoms. Her cough worsened, she is bringing up bluish mucus and short of breath. She does endorse some runny nose and sore throat, she feels cold but no fevers. On presentation patient was requiring 3-4 L nasal cannula oxygen to keep her sats in low 90s. She was tachycardic with heart rate 102, blood pressure was stable. Patient's labs are reassuring, WBC 6.9, hemoglobin 14.3. VBG pH 7.36, PCO2 47, PO2 47, bicarb 27. Electrolytes, renal functions stable. BNP 271. COVID test was negative in ER. Chest x-ray shows interstitial inflammation in both lower lobes superimposed on underlying emphysema. Patient received DuoNebs with improvement in symptoms however continues to require supplemental oxygen and have decreased breath sounds throughout the lungs. 04/04 Oxygen requirement improving, home oxygen requirement performed today and the patient will require oxygen supplementation at discharge. The patient says she has required oxygen in the past and understands how to use it. She understands not to smoke while using supplemental oxygen. Discontinued IV Solu-Medrol, started prednisone 40 mg daily with plan to continue for 5 more days. No evidence of bacterial pneumonia or viral pneumonia. Patient feels much better than yesterday, ready to discharge home. Follow-up with primary care provider. Physical exam Head: Atraumatic, normal inspection. Eyes: normal appearance, no scleral icterus. Neck: full ROM Respiratory: Supplemental oxygen 2 L/min, mild bilateral wheezing, fine crackles bilaterally. Cardiovascular: normal rate and rhythm, S1, S2. GI/Abdominal: soft, nontender, no guarding. Extremities: full range of motion, nontender. Neurological: CN II-XII intact, intact motor, intact sensation. Psychiatric: normal mood. Skin: warm, normal color Discharge diagnosis: COPD exacerbation Secondary discharge diagnosis: Acute hypoxic respiratory failure Time Spent with Patient Time attestation: Total time spent providing and/or coordinating discharge services: Time spent: Less than 30 minutes EXAM Constitutional Vitals: Temp Pulse Resp BP Pulse Ox O2 Del Method O2 Flow Rate 98.4 F 88 20 133/69 90 Nasal Cannula 2 04/04/23 07:14 04/04/23 07:14 04/04/23 07:14 04/04/23 07:14 04/04/23 07:14 04/04/23 07:14 04/04/23 07:14 Discharge Data Data Completed and Pending Labs on day of discharge: Labs from last 24 hours 04/02/23 22:39 Procalcitonin 0.05 Discharge Plan Patient/Caregiver Discharge Instructions Activity: increase activity as tolerated Diet: Regular Diet Prescriptions: New nicotine (polacrilex) [Quit 4] 4 mg gum 4 mg buccal Q2H PRN (Reason: nicotine cravings) Qty: 50 4RF prednisone 20 mg Tablet 40 mg PO QAC 5 Days Qty: 10 0RF nicotine 7 mg/24 hr Patch 24 Hour 7 mg topical DAILY@1000 Qty: 30 3RF albuterol sulfate 90 mcg/actuation HFA aerosol inhaler 2 puff inhalation Q2H PRN (Reason: shortness of breath or wheezing) Qty: 8.5 4RF Continued omeprazole magnesium 20 mg capsule,delayed release(DR/EC) 20 mg PO BID mirtazapine 7.5 mg tablet 7.5 mg PO QHS amlodipine 5 mg tablet 5 mg PO QDAY Qty: 90 3RF benazepril [Lotensin] 20 mg tablet 20 mg PO BID Qty: 180 3RF Stiolto Respimat 2.5-2.5 mcg/actuation mist See Rx Instructions .ROUTE .COMPLEX Qty: 4 11RF Dose Instruction: INHALE 2 PUFFS BY MOUTH ONCE DAILY ADMINISTER AT APPROXIMATELY THE SAME TIME EACH DAY Rx Instructions: INHALE 2 PUFFS BY MOUTH ONCE DAILY ADMINISTER AT APPROXIMATELY THE SAME TIME EACH DAY Follow Up Plan Follow up with: Mary Reddy DO [Primary Care Provider] - Patient Disposition: Home, Self-Care Overall status at discharge: patient is progressing back to baseline Discharge Orders: Discharge Order (Routine); Ordered 04/04/23 Ordered By: Rigoberto MARTINES VTE Deep Vein Thrombosis/Pulmonary Embolism Present on Admission: No
[2023-04-04] MEDS ORDERED: NICOTINE 7 MG PATCH TOPICAL SCH (10:00)
[2023-04-05] MEDS ORDERED: predniSONE 20 MG TABLET PO SCH (08:00)
== END 2023-04-04 10:55 | disposition home or self-care (01) | DRG 190 ==
LOC: ED 22:21 → MEDSUR 04-03 03:32
PROVIDERS: ADMIT Internal Medicine; ATTEND Internal Medicine